=== PATIENT | female | born 1945 | race Caucasian/White ===

== ENCOUNTER → 2024-04-07 13:42 | Outpatient (REF) | payer MEDICARE, SELFPAY | LOC: RAD 13:42 | PROVIDERS: ATTENDING PHYSICIAN Surgery; FAMILY PHYSICIAN Family Medicine | DX: K44.9 Diaphragmatic hernia without obstruction or gangrene (principal); R06.02 Shortness of breath; R11.2 Nausea with vomiting, unspecified; R10.13 Epigastric pain | CPT/HCPCS: 71260; 74160; Q9967 ==

== ENCOUNTER 2024-04-26 06:27 | Day surgery (SDC) | payer MEDICARE, SELFPAY | END 2024-04-26 12:19 | disposition home or self-care (01) | LOC: GI 06:27 | PROVIDERS: ATTENDING PHYSICIAN Internal Medicine | DX: R12 Heartburn (principal); R93.3 Abnormal findings on diagnostic imaging of other parts of digestive tract; K44.9 Diaphragmatic hernia without obstruction or gangrene; K22.2 Esophageal obstruction; K29.70 Gastritis, unspecified, without bleeding; K31.89 Other diseases of stomach and duodenum | CPT/HCPCS: 43239; 88305; 88342 ==

== ENCOUNTER → 2024-04-27 15:32 | Outpatient (REF) | payer MEDICARE, SELFPAY | LOC: RAD 15:32 | PROVIDERS: ATTENDING PHYSICIAN Internal Medicine Critical Care Medicine; FAMILY PHYSICIAN Family Medicine | DX: R06.02 Shortness of breath (principal) | CPT/HCPCS: 71275; Q9967 ==

== ENCOUNTER → 2024-05-01 11:34 | Outpatient (REF) | payer MEDICARE, SELFPAY | LOC: DHSLP 11:34 | PROVIDERS: ATTENDING PHYSICIAN Internal Medicine Critical Care Medicine | DX: G47.33 Obstructive sleep apnea (adult) (pediatric) (principal) | CPT/HCPCS: 95800 ==

== ENCOUNTER → 2024-11-21 10:02 | Outpatient (REF) | payer MEDICARE, SELFPAY ==
[2024-11-21 10:58] LABS: Hematocrit 43.3 % (37.0-47.0); Hemoglobin 14.3 g/dL (12.0-16.0); Mean Corp Hgb Conc. 33.0 g/dL (33.0-37.0); Mean Corpuscular Volume 91.0 fL (81.0-99.0); Platelet Count 248 10^3/uL (130-400); Red Cell Dist. Width 15.7 % (11.5-14.5)
[2024-11-21 11:25] LABS: Blood Urea Nitrogen 17 mg/dl (7-17); Calcium 9.4 mg/dl (8.4-10.2); Carbon Dioxide 28 mmol/L (22-30); Chloride 107 mmol/L (98-107); Glucose 94 mg/dl (70-99); Potassium 4.2 mmol/L (3.5-5.1); Sodium 141 mmol/L (135-145); eGFR > 60.00
== END ==
LOC: SDSPAT 10:02
PROVIDERS: ATTENDING PHYSICIAN Surgery; FAMILY PHYSICIAN Family Medicine
DX: Z01.818 Encounter for other preprocedural examination (principal)
CPT/HCPCS: 36415; 80048; 85027; 86850; 86900; 86901; 93005

== ENCOUNTER 2024-12-01 06:20 | Day surgery (SDC) | payer MEDICARE, SELFPAY ==
[2024-11-21 14:06] VITALS: BMI 34.4
[2024-12-01] VITALS (12 sets, daily range): BP systolic 104–152; BP diastolic 57–80; BMI 34.4
[2024-12-01] MEDS: NORMOSOL-R/PLASMALYTE-A 1000 IV (10:15)
[2024-12-01] MEDS: TYLENOL 1000 MG PO (10:35)
--- NOTE | 2024-12-01 11:52 | W.SUR.PREOP ---
Pre-Operative Surgical Note
-
I have examined this patient prior to the performance of the scheduled procedure.
The patient's condition is unchanged from the time of the current History and
Physical and the patient is able to undergo the scheduled procedure.
--- NOTE | 2024-12-01 16:22 | W.IMMPOSTOP ---
Addendum entered and electronically signed by Rigo Amaya MD 12/06/24 08:17:
#[id number]
Original Note:
Surgical Immed Post Op Note
-
Primary Surgeon: Rigo Amaya MD
Assisting Surgeon: Philly Jose PA-C
Pre-op Diagnosis: Type III paraesophageal hernia with GERD
Post-op Diagnosis: Type III paraesophageal hernia with GERD
Procedure Performed: Robotic assisted laparoscopic paraesophageal hernia pair with posterior fundoplication and gastropexy; EGD
Anesthesia Type: GETA +0.25% Marcaine with epi
Specimen / Cultures: None
Estimated Blood Loss: 20 mL
Complications: None immediate
Operative Findings: Moderate type III paraesophageal hernia containing the fundus. Hiatal hernia sac and contents completely reduced. Anterior hernia sac and phrenoesophageal fat pad mobilized/excised. Bilateral vagus nerves identified and
preserved. Mediastinal esophageal mobilization to allow for 3 cm tensionless intra-abdominal esophageal length. Posterior crural closure with 4 simple interrupted 0 silk sutures. 58 Vincentian bougie to size crural closure and posterior
fundoplication. Partial posterior fundoplication performed over distal 2 cm of esophagus. Single left gayle fundic gastropexy stitch, single posterior fundoplication gastropexy to posterior crural closure. Anterior gastropexy along greater
curvature at level of incisura angularis to anterior abdominal wall with 4 interrupted horizontal mattress 0 silk sutures. Left capnothorax from pleural opening during mobilization of esophagus. Evacuated with suction catheter at the conclusion of
surgery with multiple Valsalva maneuvers.
The assistance of Philly Jose PA-C was required due to the complexity of the procedure. During the procedure Philly Jose PA-C assisted with port placement, robotic instrumentation and suture material exchanges, and closure of the surgical incision
sites. I was present for the entirety of the operative procedure.
[2024-12-01] MEDS: DILAUDID 0.5 MG IV ×4 (16:29→22:31)
[2024-12-01] MEDS: DILAUDID 0.25 MG IV (17:30)
--- NOTE | 2024-12-01 18:30 | PTCARENOTE ---
pt admitted to 2S room 2109 from the PACU via bed @1800. admission database and assessment completed as documented. pt drowsy but easily arousable. family at bedside. pt oriented to room, call rudolph, bed controls and post op plan of care with
verbalized understanding. care ongoing.
[2024-12-01] MEDS: NSS 1000 IV (19:37)
[2024-12-01] MEDS: OFIRMEV 100 IV (19:37)
[2024-12-01] MEDS: ZOFRAN 4 MG IV (19:51)
[2024-12-01] MEDS: LOVENOX 40 MG SC (19:52)
[2024-12-02] MEDS: OFIRMEV 100 IV ×2 (00:33→06:04)
[2024-12-02] MEDS: ZOFRAN 4 MG IV ×2 (00:34→06:04)
[2024-12-02] MEDS: TORADOL 10 MG IV (02:09)
[2024-12-02] MEDS: DILAUDID 0.5 MG IV ×2 (02:50→08:08)
[2024-12-02 03:08] VITALS: BP 127/62
[2024-12-02] MEDS: NSS 1000 IV ×2 (06:04→17:54)
[2024-12-02 06:40] LABS: Hematocrit 36.9 % (37.0-47.0); Hemoglobin 11.8 g/dL (12.0-16.0); Mean Corp Hgb Conc. 32.0 g/dL (33.0-37.0); Mean Corpuscular Volume 93.7 fL (81.0-99.0); Platelet Count 179 10^3/uL (130-400); Red Cell Dist. Width 16.3 % (11.5-14.5)
[2024-12-02 07:15] LABS: Blood Urea Nitrogen 19 mg/dl (7-17); Calcium 8.3 mg/dl (8.4-10.2); Carbon Dioxide 28 mmol/L (22-30); Chloride 108 mmol/L (98-107); Estimated Creatinine Clearance 59 ml/min; Glucose 95 mg/dl (70-99); Potassium 4.4 mmol/L (3.5-5.1); Sodium 139 mmol/L (135-145); eGFR > 60.00
[2024-12-02 07:28] VITALS: BP 119/48
[2024-12-02] MEDS: PROTONIX IV 40 MG IV (08:12)
[2024-12-02 11:27] VITALS: BP 119/75
[2024-12-02] MEDS: TYLENOL 650 MG PO ×2 (11:47→19:48)
[2024-12-02] MEDS: CODEINE 30 MG PO ×2 (11:47→19:48)
--- NOTE | 2024-12-02 11:50 | CM ---
Patient seen bedside, initial assessment completed. Patient had robotic assisted laparoscopic paraesophageal hernia pair with posterior fundoplication and gastropexy yesterday. On room air.
Patient resides alone in a 1st floor independent living apartment at [facility]. Patient is independent w/ ambulation, no device required. Independent w/ ADLs and personal care. Patient has a CPAP that she uses at night when she remembers to.
Denies SNF/HC hx.
Address, point of contact and insurance verified
PCP: Deann Jiang
Pharmacy: [facility]
Plan: Home, no needs anticipated
--- NOTE | 2024-12-02 12:08 | W.PN.GS2 ---
Addendum entered and electronically signed by Horace Smith MD 12/02/24 15:11:
Denies N/V, tolerating clears, no bowel function, having trouble with pain control and headaches
AFVSS, ABD soft, mildly distended in the upper abdomen with tympany, appropriately tender near incisions; incisions well-approximated without erythema or drainage, covered in Dermabond
WBC 11.5, Hb 11.8 from 14.3, repeat was stable at 12, CR 0.8
� Continue clears; plan for fulls on POD 3
� Continue pain control with Tylenol and codeine with Dilaudid for breakthrough
� Continue DVT PPx with Lovenox
Dispo� Due to trouble with pain control and distention, will monitor for today and hopefully DC tomorrow
Original Note:
Today's Communication / Plan
-
clears, ivf
pain management
Assessment / Plan
-
79 yo female presenting for management of type III paraesophageal hernia with GERD
POD #1 Robotic assisted laparoscopic paraesophageal hernia pair with posterior fundoplication and gastropexy; EGD
AFVSS
Mild acute post operative anemia secondary to expected losses and hemodilution
Mild reactive leukocytosis
Not yet passing flatus, no nausea with clears. voiding since espinoza removed
Plan:
Continue CLD, advance to FLD tomorrow if tolerating
Tylenol ATC, Toradol/Codeine/Dilaudid prn
OOB as tolerated
Trend labs
OOB/Ambulate
Decrease IVF
Lovenox/scds for VTE ppx
Subjective Data
-
Date of Service: December 02, 2024
Pt seen and examined at bedside with Dr. Smith. Daughter present, questions addressed. Notes a headache this morning. Tolerated liquids without nausea, not passing gas. No BM's. Incisional pain/discomfort.
Objective Data
-
Intake and Output
12/01/24 12/02/24 12/03/24
06:59 06:59 06:59
Intake Total 1200 / 1200
Output Total 1400 / 1400
Balance -200 / -200
Intake:
IV fluids (Total) 1200 / 1200
Output:
Urine, Espinoza 1200 / 1200
Urine, Voided 200 / 200
Vital Signs
Temp Pulse Resp BP Pulse Ox
98.6 F 61 17 119/75 96
12/02/24 11:27 12/02/24 11:27 12/02/24 11:27 12/02/24 11:27 12/02/24 11:27
Lab Results
12/02/24 05:47
Calcium 8.3 mg/dl (8.4-10.2) L 12/02/24 05:47
Physical Exam
-
NAD
ABD soft, mild distention with mild tympany, expected incisional tenderness
Incisions well approximated, intact glue
[2024-12-02 13:37] LABS: Hematocrit 36.6 % (37.0-47.0); Hemoglobin 12.0 g/dL (12.0-16.0)
[2024-12-02] MEDS: ZOFRAN IV ×2 (14:09→18:04)
[2024-12-02 15:49] VITALS: BP 125/56
[2024-12-02] MEDS: TYLENOL PO (17:42)
[2024-12-02] MEDS: LOVENOX 40 MG SC (17:56)
[2024-12-02 23:00] VITALS: BP 145/63
[2024-12-03] MEDS: TYLENOL PO ×3 (01:01→12:55)
[2024-12-03] MEDS: ZOFRAN IV ×2 (01:01→07:49)
[2024-12-03] MEDS: CODEINE 30 MG PO (01:55)
[2024-12-03 06:21] LABS: Hematocrit 39.1 % (37.0-47.0); Hemoglobin 12.5 g/dL (12.0-16.0); Mean Corp Hgb Conc. 32.0 g/dL (33.0-37.0); Mean Corpuscular Volume 94.0 fL (81.0-99.0); Platelet Count 165 10^3/uL (130-400); Red Cell Dist. Width 16.3 % (11.5-14.5)
[2024-12-03 06:42] LABS: Blood Urea Nitrogen 12 mg/dl (7-17); Calcium 8.2 mg/dl (8.4-10.2); Carbon Dioxide 29 mmol/L (22-30); Chloride 109 mmol/L (98-107); Estimated Creatinine Clearance 59 ml/min; Glucose 90 mg/dl (70-99); Potassium 4.0 mmol/L (3.5-5.1); Sodium 140 mmol/L (135-145); eGFR > 60.00
[2024-12-03 07:25] VITALS: BP 136/64
[2024-12-03] MEDS: PROTONIX IV 40 MG IV (08:23)
[2024-12-03] MEDS: TYLENOL 650 MG PO (08:24)
--- NOTE | 2024-12-03 09:53 | W.PN.GS2 ---
Addendum entered and electronically signed by Horace Smith MD 12/03/24 18:39:
The INSURANCE PROCESSOR's note was reviewed and I agree with the note. Patient was not personally seen as she was discharged before I was available
Original Note:
Today's Communication / Plan
-
dispo planning
Assessment / Plan
-
79 yo female presenting for management of type III paraesophageal hernia with GERD
POD #2 Robotic assisted laparoscopic paraesophageal hernia pair with posterior fundoplication and gastropexy; EGD
AFVSS
Labs stable, no leukocytosis
Passing flatus, tolerating clears
Plan:
Full liquid diet
Tylenol ATC, Toradol/Codeine/Dilaudid prn
OOB as tolerated
Trend labs
OOB/Ambulate
D/C IVF
Lovenox/scds for VTE ppx
Dispo planning
Subjective Data
-
Date of Service: December 03, 2024
Pt seen and examined at bedside. Denies n/v. Tolerating clears without difficulty. Passing some flatus. Headache resolved.
Objective Data
-
Intake and Output
12/02/24 12/03/24 12/04/24
06:59 06:59 06:59
Intake Total 1200 / 1200 2700 / 2700
Output Total 1400 / 1400 1450 / 1450
Balance -200 / -200 1250 / 1250
Intake:
Oral fluids 780 / 780
IV fluids (Total) 1200 / 1200 1920 / 1920
Output:
Urine, Mccullough 1200 / 1200
Urine, Voided 200 / 200 1450 / 1450
Other:
Number of approximated MODERATE 1
amounts of urine
Number of approximated LARGE 1
amounts of urine
Vital Signs
Temp Pulse Resp BP Pulse Ox
98.7 F 79 17 136/64 96
12/03/24 07:25 12/03/24 07:25 12/03/24 07:25 12/03/24 07:25 12/03/24 07:25
Lab Results
12/03/24 05:41
12/03/24 05:41
Calcium 8.2 mg/dl (8.4-10.2) L 12/03/24 05:41
Physical Exam
-
NAD
ABD soft, minimal distention, expected incisional tenderness
Incisions well approximated, intact glue, mild ecchymosis
[2024-12-03] MEDS: NSS IV (10:55)
[2024-12-03 14:30] VITALS: BP 138/62
--- NOTE | 2024-12-03 14:43 | CM ---
Following up on Patient. Patient discharging and IMM Completed. PLAN: Home No Needs
== END 2024-12-03 14:45 | disposition home or self-care (01) ==
LOC: SDS 06:20
PROVIDERS: Registered Nurse; ATTENDING PHYSICIAN Surgery; FAMILY PHYSICIAN Family Medicine
DX: K44.9 Diaphragmatic hernia without obstruction or gangrene (principal); K21.9 Gastro-esophageal reflux disease without esophagitis; D64.9 Anemia, unspecified; D72.829 Elevated white blood cell count, unspecified
CPT/HCPCS: 43281; 80048; 85014; 85018; 85027; 86900; 86901; 87070

== ENCOUNTER → 2024-12-05 10:38 | Outpatient (REF) | payer MEDICARE, SELFPAY ==
[2024-12-05 12:39] LABS: Hematocrit 39.7 % (37.0-47.0); Hemoglobin 13.2 g/dL (12.0-16.0); Mean Corp Hgb Conc. 33.2 g/dL (33.0-37.0); Mean Corpuscular Volume 91.1 fL (81.0-99.0); Nucleated Red Blood Cells % 0 %; Platelet Count 211 10^3/uL (130-400); Red Cell Dist. Width 15.9 % (11.5-14.5)
[2024-12-05 13:59] LABS: ALT (SGPT) 246 U/L (0-35); AST (SGOT) 59 U/L (14-36); Albumin 3.4 g/dl (3.5-5.0); Alkaline Phosphatase 62 U/L (38-126); Blood Urea Nitrogen 13 mg/dl (7-17); Calcium 8.6 mg/dl (8.4-10.2); Carbon Dioxide 31 mmol/L (22-30); Chloride 104 mmol/L (98-107); Glucose 187 mg/dl (70-99); Potassium 4.2 mmol/L (3.5-5.1); Sodium 140 mmol/L (135-145); Total Protein 5.8 g/dl (6.3-8.2); eGFR > 60.00
== END ==
LOC: HWRAD 10:38
PROVIDERS: ATTENDING PHYSICIAN Surgery; FAMILY PHYSICIAN Family Medicine
DX: Z98.890 Other specified postprocedural states (principal); R06.02 Shortness of breath
CPT/HCPCS: 36415; 71046; 80053; 85025

== ENCOUNTER → 2024-12-14 15:42 | Outpatient (REF) | payer MEDICARE, SELFPAY | LOC: HWRAD 15:42 | PROVIDERS: ATTENDING PHYSICIAN Surgery; FAMILY PHYSICIAN Family Medicine | DX: R06.02 Shortness of breath (principal); Z98.890 Other specified postprocedural states; Z87.19 Personal history of other diseases of the digestive system | CPT/HCPCS: 71046 ==